=== PATIENT | female | born 1970 | race Caucasian/White ===

== ENCOUNTER → 2016-05-06 06:02 | Day surgery (SDC) | payer OTHER ==
--- NOTE | 2016-05-01 20:08 | HP ---
PREOPERATIVE HISTORY AND PHYSICAL: DATE OF ADMISSION/SURGERY: 05/06/16 PROCEDURE: Left shoulder arthroscopic decompression and debridement, excision distal clavicle, poss ible rotator cuff repair, and possible subpectoral biceps tenodesis. CHIEF COMPLAINT: Left shoulder pain. HISTORY OF PRESENT ILLNESS: Daryl is a 45-year-old female who presents to the clinic for ongoing left shoulder pain due to a rotator cuff injury and biceps tendinitis. She has failed conservative measures and has, therefore, agreed to undergo a left shoulder arthroscopic decompression and debrid ement, excision distal clavicle, possible rotator cuff repair, and possible subpectoral biceps tenod esis with Dr. Antonio on 05/06/16. PAST MEDICAL HISTORY: 1. GERD. 2. Depression. 3. Hyperlipidemia. 4. Heart disease. 5. Cancer. 6. Diabetes type 2. 7. Hypercholesterolemia. PAST SURGICAL HISTORY: Septoplasty, tubal ligation, and skin graft to the left arm. MEDICATIONS: 1. Ibuprofen 600 mg 3 times a day. 2. Omeprazole 20 mg 1 by mouth every day. 3. Sertraline HCL 50 mg 1 by mouth every day. 4. Simvastatin 20 mg 1 by mouth every day. ALLERGIES: SULFA ANTIBIOTICS, ERYTHROMYCIN. FAMILY HISTORY: She denies family history of DVT or PE. SOCIAL HISTORY: She lives with her . She smokes half a pack per day x27 years. She denies alcohol use. REVIEW OF SYSTEMS: A 14-point review of systems was reviewed with the patient and positive for head ache, GERD, intermittent numbness and tingling in the left hand. She denies chest pain, shortness of breath, history of bleeding disorder, history of DVT or PE, history of problems with anesthesia. PHYSICAL EXAMINATION GENERAL: Well-developed, well-nourished 45-year-old female in no acute distress. Alert and oriented x3. Appropriate mood and affect. VITALS: Height 67, weight 200. Pulse 76, blood pressure 134/78, respiratory rate 18. BMI 31.3. HEENT: Normocephalic, atraumatic, PERRLA. Throat clear. NECK: Supple. PULMONARY: Lungs are clear to auscultation bilaterally. No wheezes, rhonchi, or rales. CARDIO: Regular rate and rhythm. S1, S2. No murmurs, gallops, or rubs. No edema. ABDOMEN: Positive bowel sounds. Soft, nontender. MUSCULOSKELETAL: Left upper extremity, skin is intact. No erythema or warmth. Tenderness over the AC joint in the bicipital groove. Forward flexion to 160 degrees, abduction to 160 degrees. Dust Puller ally rotate to 75, internally rotate to the thoracolumbar spine. +4/5 strength to supraspinatus len ting with pain. +5/5 to infraspinatus. +4/5 to subscapularis tendon with testing. Positive Neer, Zavala, Desmond, Speed, and Reagan. +2 radial pulses. Sensation intact to light touch distally. NEURO: Alert and oriented x3. Cranial nerves grossly intact. Sensation intact to light touch. DIAGNOSTIC STUDIES/LAB DATA: MRI demonstrated partial thickness tearing of the supraspinatus testi ng of the tendon and fluid in the bicipital groove indicating biceps tendinitis and AC joint arthrit is. IMPRESSION: Left shoulder partial tear of the supraspinatus tendon of the rotator cuff and AC joint arthritis and biceps tendinitis. PLAN: The patient is scheduled to undergo a left shoulder arthroscopic decompression and debridemen t, excision distal clavicle, possible rotator cuff repair, possible subpectoral biceps tenodesis gloria Antonio on 05/06/16. She will return to the office 10 to 14 days postop for followup and sutur e removal. She has been cleared for surgery by her primary care physician. Percocet will be used fo r postoperative pain management. JOANN SILVEIRA [id number]/[facility] #: [id number]
[~2016-05-06 06:02] MED LIST: Buffered Lidocaine 1% SYRIN* 3 ML/SYR SYRINGE INTRADERM ONE; Bupivacaine 0.25% SDV* 30 ML ONE; Dexamethasone IV* 4 MG/ML 1 ML (4 MG) ONE; DiMENhydriNATE IV* 50 MG/ML VIAL IV PUSH PRN; DiMENhydriNATE IV* 50 MG/ML VIAL ONE; Famotidine IV* 10 MG/ML 2 ML (20 mg) ONE; HYDROmorphone* 1 MG/ML 1 ML SYR IV PRN; HYDROmorphone* 1 MG/ML 1 ML SYR ONE; KETAMINE HCL* 50 MG/ML 10 ML VIAL ONE; Ketorolac INJ* 30 MG/ML 1 ML VIAL ONE; Lidocaine 2% PF* 5 ML VIAL ONE; Midazolam* 1 MG/ML 5 ML VIAL (5 MG) ONE; Ondansetron INJ* 2 MG/ML VIAL ONE; Propofol* 10 MG/ML 20 ML BTL IV PUSH ONE; ROPIVACAINE 5 MG/ML 30 ML BTL (0.5%) ONE; Succinylcholine* 20 MG/ML 10 ML VIAL ONE; ceFAZolin 2 GM PREMIX(*) 2 GM/50 ML BAG IVPB ONE; fentaNYL* 50 MCG/ML 2 ML VIAL (100 MCG VIAL) ONE; oxyCODONE/Acetamin 5/325 MG* TAB PO PRN
[2016-05-06] MEDS: Famotidine IV* 10 MG/ML 2 ML (20 mg) IV ONE (06:50)
[2016-05-06 11:14] VITALS: BP 132/86
--- NOTE | 2016-05-06 16:27 | OP ---
DATE OF OPERATION: 05/06/16 [facility] DATE OF : 66 SURGEON: Layne Antonio MD BLANCHARD GRINDER OPERATOR: JOANN Coronado. Home Care Manager Rn was needed for the entirety of the case to help with positioning, retraction, and placement of anchors and sutures. ANESTHESIOLOGIST: Dr. Montano. ANESTHESIA: General with interscalene block. PRE-OP DIAGNOSES: Left shoulder high-grade partial thickness tear of the rotator cuff, bicipital tendonitis, AC joint arthritis and impingement. POST-OP DIAGNOSES: Left shoulder high-grade partial thickness tear of the rotator cuff, bicipital tendonitis, AC joint arthritis and impingement. OPERATIVE PROCEDURE: Left shoulder arthroscopy with: 1. Glenohumeral debridement. 2. Subacromial decompression with acromioplasty. 3. Distal clavicle excision. 4. Rotator cuff repair, double row fashion. 5. Subpectoral biceps tenodesis. COMPLICATIONS: None. ESTIMATED BLOOD LOSS: Minimal. IMPLANTS: One 4.75 Healicoil, one Multifix, and one Q-Fix anchor. INDICATIONS: Daryl Prince is a 45-year-old female who sustained a work- related injury over 6 months ago to her left shoulder. She has failed conservative management consisting with injections and physical therapy. She has MRI confirmation of partial thickness tearing of the rotator cuff as well as bicipital tendonitis. She has failed conservative management, and after obtaining approval from [employer], she has elected to proceed with left shoulder arthroscopy, rotator cuff repair, subpectoral biceps tenodesis, distal clavicle excision, and decompression. Risks include but are not limited to bleeding, infection, damage to nerves, vessels, surrounding structures, wound nonhealing, persistent pain, need for further surgery, risks of anesthesia, stiffness, persistent pain, scarring, incomplete relief of symptoms, failure of the repair, risk of anesthesia, and risk of DVT. She has elected to proceed. DESCRIPTION OF PROCEDURE: The patient was greeted in the preoperative area by the attending surgeon. Correct extremity was marked and consent was confirmed. The patient was then brought back to the operating suite where she was placed in a supine position on the operating room table. She then underwent interscalene nerve block by the anesthesiologist, after which the patient underwent endotracheal intubation. The patient was then placed in the right lateral decubitus position with an axillary roll. All bony prominences were padded. She was supported with a peg board. The left arm was draped unsterile with 10 pounds of traction. The left shoulder was prepped and dapped in the usual sterile fashion beginning with chlorhexidine soap, alcohol wipe, and a final prep with ChloraPrep. After appropriate surgical pause indicating site, side, procedure, and administration of antibiotics, the standard postero-lateral protal was made sharply with an 11 blade. The scope was introduced into the joint. The joint was examined. There were grade 0 changes to the glenoid and the humeral head. The undersurface of the rotator cuff had high-grade partial thickness tearing with an unstable flap. The subscapularis was intact. There was abundant erythema in the shoulder. There was a type 2 SLAP tear that was present with instability of the biceps anchor. Therefore, the anterior portal was made in an outside-in fashion and a biter was used to do biceps tenotomy. The shaver was used to debride the anterior, posterior, and superior labrum back. The inferior recess was intact. The undersurface of the supraspinatus was probed and again it was found to have a high-grade partial thickness tearing. The subscapularis was identified and it was intact. At this point, fluid and debris were removed from the joint and the scope was repositioned into the subacromial space. The scope was positioned in the subacromial space. The lateral portal was made in outside-in fashion. There was abundant hyperemic bursa that was present. The shaver was then used to debride this back which exposed the rotator cuff which was intact on the bursal aspect. It was probed and found to be quite thin at the level of the previously identified partial thickness tear. There was a moderately large anterolateral spur that was present. This was skeletonized with the acromion and then a 4-0 oval bur was then used to perform the acromioplasty which got rid of the large spur. All loose debris was removed and attention was directed to the distal clavicle. This was skeletonized using an electrocautery device. There was stenosis of the AC joint. Then the bur was placed through the anterior portal and a distal clavicle excision was done to remove approximately 8 mm of the distal clavicle with care to prevent disruption of the CC ligaments and superior capsule. All loose debris and tissue were removed. Final images were obtained. The stress examination of the clavicle demonstrated that there was no more areas of impingement. Once the distal clavicle was resected, attention was directed to the rotator cuff. The tear was completed using an 11 blade and the greater tuberosity as well as the rotator cuff was debrided back to a stable layer. Any unstable flaps were removed. The foot print was prepared using the shaver, the electrocautery device as well as the rasp to allow for good bony bleeding edge. At this point it was decided that one medial row anchor would be sufficient as it was a small tear. Through a separate stab incision, a 4.75 Healicoil was placed in the medial row. The sutures were passed in horizontal mattress configuration and tied down and then all sutures were passed through Multifix anchor for a lateral row fixation. Both anchors were placed with excellent purchase. The final images were obtained. The shoulder was taken through gentle range of motion, found to be intact with excellent compression of the cuff. All fluid and debris were removed, attention directed to the biceps. The bed was airplaned to the left side. The anterior aspect of the shoulder was prepped again using ChloraPrep. A 15-blade was used to make an incision in line with the biceps. Soft tissues were carefully dissected using Metzenbaum scissors until the pec fascia was identified. The remainder of the dissection was done bluntly. Sudheer blades were used to retract the pec superiorly. The biceps groove was palpated and then a small inna in the fascia was done. The biceps was removed through the groove and was found to have abundant hyperemia as well as adhesions. These were released. The biceps groove was then prepared in the usual fashion with electrocautery device, red ball rasp, and osteotome to allow for good bony bleeding edge. The Q-Fix anchor was then drilled unicortically and the Q-Fix was deployed with excellent purchase. The sutures were then passed through the biceps tendon 1 cm proximal to the musculotendinous junction in a Kulwinder-Antonio type configuration. The excess stump was sharply excised and then the suture was shuttled back into the groove. The sutures were then tied down. The wounds were copiously irrigated with sterile saline. The anterior wound was closed in layers of 2-0 Vicryl, 3-0 Monocryl, and the portals with 3-0 nylon. Sterile dressings were applied. 20 cc were injected in the anterior wound. A CryoCuff as well as an UltraSling were then applied. The patient was then awoken from anesthesia and transferred to the PACU in stable condition. POSTOPERATIVE PLAN: She will be nonweightbearing for 6 weeks. She will be in a sling for 6 weeks. She will be allowed to work on elbow, wrist, and hand range of motion as well as pendulum exercises. She will follow up with me in 10 to 14 days. DVT prophylaxis considered, but deferred due to no previous personal or family history. She will be discharged on pain medications as well as antibiotics. [id number]/[facility] #: [id number] LAURIE
== END | disposition home or self-care (01) ==
LOC: OR 06:02
PROVIDERS: ATTEND Orthopaedic Surgery
DX: S46.012A Strain of muscle(s) and tendon(s) of the rotator cuff of left shoulder, initial encounter (principal); M75.22 Bicipital tendinitis, left shoulder; M75.42 Impingement syndrome of left shoulder; M19.012 Primary osteoarthritis, left shoulder; E11.9 Type 2 diabetes mellitus without complications; F17.210 Nicotine dependence, cigarettes, uncomplicated; I10 Essential (primary) hypertension; E78.5 Hyperlipidemia, unspecified; X50.0XXA Overexertion from strenuous movement or load, initial encounter; Y92.9 Unspecified place or not applicable; Y99.0 Civilian activity done for income or pay
CPT/HCPCS: C1713; C1776; J0330; J0690; J1100; J1170; J1240; J1885; J2250; J2405; J2704; J2795; J3010

== ENCOUNTER 2017-11-04 09:17 | Observation (INO) | payer OTHER ==
[~2017-11-04 09:17] MED LIST changes: +Acetaminophen TAB* 325 MG PO ONE; +Buffered Lidocaine 0.9% SYRIN* 5 ML/SYR SYRINGE INTRADERM ONE; -Buffered Lidocaine 1% SYRIN* 3 ML/SYR SYRINGE INTRADERM ONE; -Bupivacaine 0.25% SDV* 30 ML ONE; -Dexamethasone IV* 4 MG/ML 1 ML (4 MG) ONE; -DiMENhydriNATE IV* 50 MG/ML VIAL IV PUSH PRN; -DiMENhydriNATE IV* 50 MG/ML VIAL ONE; -Famotidine IV* 10 MG/ML 2 ML (20 mg) ONE; -HYDROmorphone* 1 MG/ML 1 ML SYR IV PRN; -HYDROmorphone* 1 MG/ML 1 ML SYR ONE; -KETAMINE HCL* 50 MG/ML 10 ML VIAL ONE; -Ketorolac INJ* 30 MG/ML 1 ML VIAL ONE; -Lidocaine 2% PF* 5 ML VIAL ONE; -Midazolam* 1 MG/ML 5 ML VIAL (5 MG) ONE; -Ondansetron INJ* 2 MG/ML VIAL ONE; -Propofol* 10 MG/ML 20 ML BTL IV PUSH ONE; -ROPIVACAINE 5 MG/ML 30 ML BTL (0.5%) ONE; -Succinylcholine* 20 MG/ML 10 ML VIAL ONE; -ceFAZolin 2 GM PREMIX(*) 2 GM/50 ML BAG IVPB ONE; -fentaNYL* 50 MCG/ML 2 ML VIAL (100 MCG VIAL) ONE; -oxyCODONE/Acetamin 5/325 MG* TAB PO PRN
[2017-11-04] MEDS ORDERED: Acetaminophen TAB* 325 MG ONE (09:32)
[2017-11-04] MEDS ORDERED: ceFAZolin 2 GM in NS PREMIX(*) 2 GM/100 ML BAG IVPB ONE (09:32)
[2017-11-04] MEDS ORDERED: fentaNYL* 50 MCG/ML 2 ML VIAL (100 MCG VIAL) ONE ×6 (10:49→17:33)
[2017-11-04] MEDS ORDERED: Midazolam* 1 MG/ML 2 ML VIAL (2 MG) ONE ×2 (10:49→12:57)
[2017-11-04] MEDS ORDERED: Lidocain 1% EPI 1:100,000 * 30 ML MDV ONE (11:23)
[2017-11-04] MEDS ORDERED: Thrombin 5,000 UNITS* 1 APPLIC KIT - topical use - TOPICAL ONE (11:23)
[2017-11-04] MEDS ORDERED: Bacitracin IV* 50,000 UNITS INJ ONE (11:24)
[2017-11-04] MEDS ORDERED: Rocuronium* 10 MG/ML VIAL ONE ×3 (12:57→14:53)
[2017-11-04] MEDS ORDERED: Dexmedetomidine* 200 MCG/2 ML 2 ML VIAL ONE (14:17)
[2017-11-04] MEDS ORDERED: Acetaminophen TAB* 325 MG PO PRN (15:34)
[2017-11-04] MEDS ORDERED: DiMENhydriNATE IV* 50 MG/ML VIAL IV PUSH PRN (15:34)
[2017-11-04] MEDS ORDERED: diPHENhydraMINE IV* 50 MG/ML 1 ml VIAL (BENADRYL) IV PRN (15:34)
[2017-11-04] MEDS ORDERED: PROCHLORPERAZINE INJ 5 MG/ML 2 ML VIAL IV PRN (15:34)
[2017-11-04] MEDS ORDERED: Naloxone* 0.4 MG/ML 1 ML VIAL IV PRN (15:34)
[2017-11-04] MEDS ORDERED: Levalbuterol 1.25MG/0.5ML NEB INH PRN (15:34)
[2017-11-04] MEDS ORDERED: HYDROcodone/ACETAMIN 5-325 MG* 1 TAB PO PRN ×3 (15:34→18:25)
[2017-11-04] MEDS ORDERED: Ondansetron INJ* 2 MG/ML VIAL ONE (16:09)
[2017-11-04] MEDS ORDERED: Neostigmine Methylsulfate* 1 MG/ML 10 ML VIAL (1 mg/ml) ONE (16:40)
--- NOTE | 2017-11-04 16:56 | RAD ---
INDICATION: Status post anterior spinal fusion C5-C7. COMPARISON: Comparison is made with a prior x-ray study of the cervical spine from June 09, 2017. Correlation is also made with a prior MRI of the cervical spine from June 09, 2017. TECHNIQUE: 37 seconds of intermittent fluoroscopic guidance were provided and 3 spot films of the cervical spine were obtained in the operating room. FINDINGS: The films demonstrate postsurgical changes consistent with an anterior spinal fusion at the C5-C7 levels. There are intervertebral disc prostheses at the C5-C6 and C6-C7 levels. IMPRESSION: INTRAOPERATIVE CONTROL FILMS. CPT II Codes: G9500
[2017-11-04] MEDS: fentaNYL* 50 MCG/ML 2 ML VIAL (100 MCG VIAL) IV PRN ×3 (17:11→17:34)
[2017-11-04] MEDS ORDERED: Ondansetron INJ* 2 MG/ML VIAL IV PRN (17:43)
[2017-11-04] MEDS ORDERED: Magnesium Hydroxide LIQ* 30 ML UDC PO PRN (17:43)
[2017-11-04] MEDS ORDERED: Zolpidem TAB* 10 MG PO PRN (17:43)
[2017-11-04] MEDS ORDERED: HYDROcodone/ACETAMIN 5-325 MG* 1 TAB ONE (18:29)
[2017-11-04] MEDS: HYDROcodone/ACETAMIN 5-325 MG* 1 TAB PO PRN ×2 (18:31→23:34)
[2017-11-05] MEDS: HYDROcodone/ACETAMIN 5-325 MG* 1 TAB PO PRN ×3 (05:21→14:47)
--- NOTE | 2017-11-05 06:55 | OP ---
DATE OF OPERATION: 11/04/17 - ROOM #340 DATE OF : 66 SURGEON: Jesus Edmond MD FAMILY MEMBER CARETAKER: Ananya Ruvalcaba. PRE-OP DIAGNOSIS: Degenerative disk disease C5-6, C6-7. POST-OP DIAGNOSIS: Degenerative disk disease C5-6, C6-7. OPERATIVE PROCEDURE: The patient underwent anterior cervical diskectomy and fusion at the C5-6 and C6-7, with PEEK interbody spacer and locally harvested bone graft and DBX with anterior instrumentation with plate and screws. ESTIMATED BLOOD LOSS: 20 cc. COMPLICATIONS: None. SUMMARY: The patient is a very pleasant 47-year-old female with complaints of neck pain radiating to the left upper extremity. The patient has MRI findings consistent with degenerative disk disease with disk herniation and disk osteophyte complex at the C5-6 and C6-7, the patient was offered the option of surgical intervention after failing conservative treatment modalities. After explaining expectation, limitations, and possible complications of the procedure to the patient and her family including her , sister, and daughter with complications including, but not limited to bleeding, infection, risk of injury to adjacent structures, coma, paralysis, , need for additional procedures, anesthesia, risk, stroke, blindness, cancer, instability , hardware failure, adjacent level disease, pseudoarthrosis, recurrent laryngeal nerve injury, vocal cord paralysis, Alexandra's syndrome, spinal fluid leak, need for temporary or permanent tracheostomy or gastrostomy, anesthesia risk, the patient was agreeable to proceed with surgery. Informed consent was obtained. The patient understood that her condition may not improve, in fact may get worse after the surgery and that she may need to have additional procedures in the future. She also understood that the operative plan may be modified according to the intraoperative findings and conditions and that it may be done in more than one stages. DESCRIPTION OF PROCEDURE: The patient was brought to the operating room and was placed under general anesthesia by the anesthesia team. She was carefully positioned supine on the operative table and all bony prominences were meticulously padded. Her skin was prepped and draped in the standard fashion and after appropriate surgical pause and patient identification, a small right transverse incision was marked on the skin. The operative level was identified with the use of intraoperative fluoroscopic imaging. After infiltrating the skin with local anesthetic a #10 surgical blade was used to incise the skin, the incision was carried down to the platysma with Bovie cautery and self- retaining retractors were introduced further into the field. The skin was gently undermined with Metzenbaum scissors and after dividing the platysma with Metzenbaum scissors and undermining the platysma, the plane between the medial border of the sternocleidomastoid and the medial structures was gently developed with sharp and dull dissection after dividing the omohyoid with Bovie cautery. The vertebral fascia was gently and intraoperative fluoroscopic imaging confirmed the appropriate surgical level. [place] pin retractors were placed at C5, C6 and C7 vertebral bodies and self-retaining retractors were introduced further into the field. First operative level was at C6-7 level, which was again confirmed with intraoperative fluoroscopic imaging. A standard diskectomy was performed after incising the annulus fibrosus with #10 surgical blade. The diskectomy was performed with use of pituitary rongeurs, Kerrison punches with curettes and high-speed drill. The posterior longitudinal ligament was gently divided and foraminotomies were performed bilaterally with Kerrison #1. After meticulous hemostasis was confirmed and copious irrigation and meticulous inspection, a 9 mm height PEEK interbody spacer was inserted after it was filled with locally harvested bone graft, which was obtained during the diskectomy and disk preparation phase, and DBX putty. The [place] pin at C7 was gently removed and after hemostasis was obtained, the retractor was repositioned at the C5-6 level. Diskectomy at the C5-6 level and preparation of disk space was performed with the same manner and 8 mm PEEK interbody spacer filled with locally harvested bone graft and DBX was inserted into the C5-6 level. Zevo Medtronic 39 mm plate was then inserted and after confirming excellent placement of all hardware with fluoroscopic imaging, it was secured in place with 3.5 x 13 mm Titanium variable angle screws after drilling remote pilot operator holes with handheld drill. Intraoperative fluoroscopic imaging confirmed excellent placement of all hardware. After meticulous hemostasis was confirmed and copious irrigation and meticulous inspection, the wound was closed by layers over a #7 ALBER drain, which was tunneled through a separate stab wound incision and secured in place with 2-0 Vicryl suture. The platysma was approximated with interrupted 2-0 Vicryl sutures while the subcutaneous tissue was approximated with interrupted 2-0 Vicryl sutures and the skin was covered with Dermabond. At the end of the procedure, all counts were report to be correct. The patient remained hemodynamically stable throughout the case. At the end of procedure, the patient was transferred to Recovery in excellent condition, moving all extremities well. [id number]/[facility] #: [id number] MTDD
[2017-11-05] MEDS ORDERED: Omeprazole CAP* 20 MG PO SCH (11:00)
[2017-11-05] MEDS ORDERED: Sertraline* 50 MG TAB PO SCH (11:00)
[2017-11-05] MEDS ORDERED: Atorvastatin* 10 MG TAB PO SCH (11:00)
--- NOTE | 2017-11-05 16:57 | RAD ---
INDICATION: Status post cervical fusion, postoperative study. COMPARISON: Comparison is made with a prior exam from June 09, 2017. TECHNIQUE: 3 views of the cervical spine were obtained including lateral, AP and open-mouth odontoid views. FINDINGS: There is straightening of the cervical spine. The patient is status post anterior spinal fusion at the C5-C7 levels. There is a metallic plate present anterior to those vertebral bodies with 2 surgical screws present at each level. There are also disc prostheses at the C5-C6 and C6-C7 levels. There is a surgical drain present laterally on the right side. IMPRESSION: STATUS POST ANTERIOR SPINAL FUSION C5-C7.
[2017-11-05 18:17] VITALS: BP 136/83
--- NOTE | 2017-11-05 18:45 | PN ---
Progress Note - Progress Note Date of Service: 11/05/17 SOAP: Subjective: []No events ON. Tolerated procedure well yesterday. Preop LUE pain and numbness improved. MJ collar. Tolerates PO well, Voids, Ambulates. Wants to go home. Objective: []VSS, Afebrile Wound, s, c, d. Trachea midline. No voice changes. Drain output noted. After cleansing drain site with local anesthetic, ALBER drain was removed. Catheter appeared to be intact. No complications, Patient tolerated procedure well. AAOx3, TENA, CN II-XII grossly intact. Motor 5/5 all extremities. No pronator drift. Sensory grossly intact to light touch. Assessment: []47 yo f POD#1 ACDF C 5-6, 6-7 Plan: []Monitor VS, Neurochecks Encourage ambulation XR reveals good placement of hardware, good alignment of spine. DC today. Full instructions were given. Viri Edmond MD
--- NOTE | 2017-11-06 04:52 | DS ---
DISCHARGE SUMMARY: DATE OF ADMISSION: 11/04/17 DATE OF DISCHARGE: 11/05/17 ADMISSION DIAGNOSIS: Degenerative disk disease. DISCHARGE DIAGNOSIS: Degenerative disk disease. PROCEDURE: The patient underwent anterior cervical diskectomy and fusion at C5- 6 and C6-7 level. DISPOSITION: Home. CONDITION AT DISCHARGE: Good. HOSPITAL COURSE: The patient is a very pleasant 47-year-old female with complaints of neck pain radiating to left upper extremity after an injury. The patient had MRI findings consistent with herniation disk osteophyte complex at C5-6 and C6-7, and she was offered the option of surgical intervention. The patient underwent the above procedure and tolerated the procedure well, was able to be extubated, was transferred to the floor in excellent condition. The patient on postoperative day 1 reported her preoperative left upper extremity pain had significantly improved and she was able to tolerate p.o. well. She was ambulating and pain wasell controlled with po pain medication. She was voiding without difficulties and it was felt that she was ready to be discharged home. Full instructions were given to the patient. [id number]/[facility] #: [id number] LAURIE
== END 2017-11-05 19:15 | disposition home or self-care (01) ==
LOC: OR 09:17 → SSU 18:17
PROVIDERS: ADMIT Neurological Surgery; ATTEND Neurological Surgery
PROC: 0RG20A0 Fusion of 2 or more Cervical Vertebral Joints with Interbody Fusion Device, Anterior Approach, Anterior Column, Open Approach (ICD-10-PCS; 2017-11-04)
PROC: 0RG2070 Fusion of 2 or more Cervical Vertebral Joints with Autologous Tissue Substitute, Anterior Approach, Anterior Column, Open Approach (ICD-10-PCS; 2017-11-04)
PROC: 0RG00A0 Fusion of Occipital-cervical Joint with Interbody Fusion Device, Anterior Approach, Anterior Column, Open Approach (ICD-10-PCS; 2017-11-04)
PROC: 0RB30ZZ Excision of Cervical Vertebral Disc, Open Approach (ICD-10-PCS; principal; 2017-11-04 10:45)
DX: M50.123 Cervical disc disorder at C6-C7 level with radiculopathy (principal); Z88.2 Allergy status to sulfonamides; Z88.1 Allergy status to other antibiotic agents; F17.210 Nicotine dependence, cigarettes, uncomplicated; M50.122 Cervical disc disorder at C5-C6 level with radiculopathy
CPT/HCPCS: 72040; 76001; 81025; A9270-GY; C1713; C1776; C9359; G0378; J0690; J2250; J2405; J2710; J3010